=== PATIENT | female | born 1955 ===

== ENCOUNTER 2024-11-20 08:16 | Outpatient (CLI) | payer MEDICARE, OTHER, SELFPAY ==
--- OUTSIDE RECORDS SUMMARY | 2009-01-21 04:30 | XMS_ITS | Continuity of Care Document ---
Author Organization [facility] Address [address] [facility] [address] [place] [address] Phone Care Team Providers Care Shoeblack Name Role Phone Marquez OD, Wan Unavailable Unavailable Procedures Procedure Date Office/outpatient Visit, Est Office/outpatient Visit, Est Eye Exam, New Patient Advance Directives Directive Yes / No Effective Date File Name No Information Encounters Encounter Description Practice Location Reason(s) For Visit Diagnoses Date Provider Providers Copied on Encounter Office/outpat ient Visit, [facility], [address] [place] [address] [address], [place], [place], [id number], tel:[phone] [facility] No Information Nov-0 5-200 9 Marquez OD Wan. [address] , [address], [place], [place], [facility], . tel:[phone] Office/outpat ient Visit, [facility], [address] [place] [address] [address], [place], [place], [id number], [place] tel:[phone] [facility] No Information Oct-2 2-200 9 Marquez OD Wan. [address], [address], [place], [place], [facility], . tel:[phone] [facility], [address] [place] [address] [address], [place], [place], [id number], tel:[phone] [facility] No Information Oct-0 7-200 9 Marquez OD Wan. [address] , [address], [place], [address], [place]. tel:[phone] Family History Family Member Type Diagnosis Age At Onset No Information Payers Payer name Insurance type Covered democrat ID Authoriza tion(s) No Information Social History Type Description Quantity Date Captured Comments Sex Female Smoking Status No Information Chief Complaint And Reason For Visit No Information Reason For Referral Reason For Referral No Information History Of Present Illness Encounter Date Complaint History Of Prese nt Illness No Information Functional Status Date Functional Assessmen t No Information Instructions Date Instruction Additional Infor mation No Information Assessments Type Assessment Date No Information Patient Care Teams Name Effective Dates (start - stop) Status Members No Information
--- OUTSIDE RECORDS SUMMARY | 2018-04-02 06:30 | XMS_ITS | Continuity of Care Document ---
Author Organization [facility] Address [address] [place] [address] Phone Care Team Providers Care Aircraft Powerplant Repairer Name Role Phone Preston Solano MD Unavailable Unavailable Advance Directives Directive Yes / No Effective Date File Name No Information Encounters Encounter Description Practice Location Reason(s) For Visit Diagnoses Date Provider Providers Copied on Encounter [facility], [address], [place], [place], [address], [place] tel:[phone] [facility] No Information Xiomara Johnston. [address] [place], [place], [id number], [place]. tel:[phone] Referring Provider: Syed Edge, [address] [place], [address]. tel:[phone] Family History Family Member Type Diagnosis Age [...]
--- NOTE | ~2024-11-20 | DEXA_ITS ---
Bone Density Report Name: LU VILLEGAS Age: 69 Sex: Female Ethnicity: White Date of : 1955 Indication: postmenopausal; screening for osteoporosis; parental hip fracture; Referring Provider: COOPER, SCOTT Walton Study: Bone densitometry was performed. Exam Date: November 20, 2024 Accession number: [id number] Bone Density: Region BMD T-score Z-score Classification AP Spine(L1, L2, L3) 0.751 -2.4 -0.4 Osteopenia Femoral Neck (Left) 0.628 -2.0 -0.2 Osteopenia Total Hip (Left) 0.818 -1.0 0.4 Normal Femoral Neck (Right) 0.562 -2.6 -0.8 Osteoporosis Total Hip (Right) 0.697 -2.0 -0.5 Osteopenia Total Hip Mean 0.757 -1.5 -0.1 Osteopenia World Health Organization criteria for BMD impression classify patients as: Normal (T-score at or above -1.0), Osteopenia (T-score between -1.0 and -2.5), or Osteoporosis (T-score at or below -2.5). 10-year Fracture Risk: FRAX not reported because: Some T-score for Spine Total or Hip Total or Femoral Neck at or below -2.5 Clinical Information Provided by Patient: Parent has had a hip fracture Has used the following medications: Vitamin D, Calcium Patient maximum height was 66.5 Menopause Age: 58 Drinks caffeinated beverages Onset of menses at age 12 Number of children 2 Impression: The patient has osteoporosis, based on the Right Femoral Neck T-score. The patient has risk factors, including: parental hip fracture. Discussion: INCREASED RISK OF FRACTURE. BONE DENSITY IS UNDESIRABLY LOW AT ONE OR MORE SKELETAL SITES, CONSISTENT WITH POSTMENOPAUSAL OSTEOPOROSIS. This patient's lowest T-score meets the World Health Organization's (WHO) criteria for osteoporosis at one or more sites (T-score -2.5 or below). In untreated patients, the risk of osteoporotic fracture increases approximately two-fold for each 1.0 SD decrease in T-score. Low bone density is not the only risk factor for fracture; also consider factors such as patient's age, frailty or poor health, risk of falling, risk of injury, previous osteoporotic fracture, family history of osteoporosis, cigarette smoking, low body weight, etc. Not everyone with low bone mineral density has osteoporosis; osteomalacia and other metabolic bone disorders should also be considered. Patients who have osteoporosis should be evaluated for specific diseases and conditions (secondary causes) that may cause or contribute to bone loss. The [place] Association of Clinical Endocrinologists (AACE) and National Osteoporosis Foundation (NOF) recommend pharmacologic intervention for all postmenopausal women whose T-score is in this range. The patient should follow a healthful lifestyle (good nutrition with adequate calcium and vitamin D, and appropriate weight-bearing exercise). Follow-Up: Consider a repeat BMD and Vertebral Fracture Assessment (VFA) exam in 2 years or sooner if medically necessary, to reassess this patient's status. Reported by: ALEXANDER on 11/20/2024 8:54:00 AM. Reviewed, dictated and finalized at location A.
--- OUTSIDE RECORDS SUMMARY | 2024-11-20 08:25 | XMS_ITS | Clinical Summary ---
Author Organization [facility] Address [address] [place] [address] Care Team Providers Care Rag Shredder Name Role Phone Unavailable Primary Care Provider Unavailabl e Allergies Active Allergy Reactions Criticality Noted Date Comments Cephalexin Hives High 09/02/2013 Clindamycin Other (See Comments) 09/02/2013 Stomach pain. Sulfa (Sulfonamide Antibiotics) Hives High 09/02/2013 Unclassified Drug Hives High 10/22/2018 Medications estradioL 0.025 mg/24 hr patchIndications: Postmenopausal HRT (hormone replacement therapy) APPLY 1 PATCH TO SKIN TWICE WEEKLY DIRECTED 24 Patch 1 Active progesterone micronized (PROMETRIUM) 100 mg CapsuleIndication s:Postmenopausal HRT (hormone replacement therapy) TAKE 1 CAPSULE DAILY 90 Capsule 1 Active terbinafine HCL (LamISIL) 250 mg tablet Take 1 Tablet (250 mg) by mouth once daily for 1 week each month for 4 months. 28 Tablet 08/22/2021 5:18 PM CDT 2 Active ketorolac tromethamine (ACULAR) 0.5 % solution Instill 1 drop Right Eye twice a day 10 mL 6 12/02/2021 5:25 PM CDT 2 Active ketorolac tromethamine (ACULAR) 0.5 % solution Administer 1 Drop in right eye 2 times daily. 10 mL 2 Active mupirocin (BACTROBAN) 2 % Ointment APPLY TO THE AFFECTED AREA TWICE DAILY DIRECTED. 22 Gram 12 01/04/2022 5:23 PM CDT 2 Active triamcinolone acetonide (KENALOG) 0.1 % Cream Apply to the affected area twice daily for 2 weeks. 30 Gram 1 05/31/2022 5:54 PM CDT 3 Active amoxicillin (AMOXIL) 250 mg capsule Take 1 Capsule (250 mg) by mouth 3 times daily until gone 30 Capsule 12/27/2022 10:57 AM CDT 3 Active metroNIDAZOLE (FLAGYL) 500 mg tablet Take 0.5 Tablets (250 mg) by mouth 3 times daily until gone 15 Tablet 12/27/2022 10:57 AM CDT 3 Active HYDROcodone-aceta minophen (NORCO) 5-325 mg tablet Take 1-2 Tablets by mouth every 4-6 hours as needed for pain. 12 Tablet 12/27/2022 10:57 AM CDT 3 Active bromfenac (Prolensa) 0.07 % Drops solution Administer 1 drop to right eye once a day. 3 mL 4 02/22/2023 10:23 AM SEGMENTAL PAVER INSTALLER 3 Active terbinafine HCL (LamISIL) 250 mg tablet Take 1 tablet by mouth daily for 1 week, each month for 4 months 28 Tablet 08/23/2023 10:51 AM CDT 4 Active mupirocin (BACTROBAN) 2 % Ointment Apply to nose twice daily 22 Gram 12 01/23/2024 4:37 PM SEGMENTAL PAVER INSTALLER 4 Active triamcinolone acetonide (KENALOG) 0.1 % Cream Apply to back twice daily for 1-2 weeks 30 Gram 01/23/2024 4:37 PM SEGMENTAL PAVER INSTALLER 4 Active HYDROcodone-aceta minophen (NORCO) 5-325 mg tablet Take 1 Tablet by mouth every 4-6 hours as needed for pain. 6 Tablet 06/27/2024 3:06 PM CDT 5 Active ivermectin (STROMECTOL) 3 mg Tablet Take 1 Tablet (3 mg) by mouth daily for 4 weeks. 28 Tablet 08/29/2024 3:21 PM CDT 5 Active progesterone micronized (PROMETRIUM) 100 mg Capsule Take 1 Capsule (100 mg) by mouth daily. 90 Capsule 1 5 Active Active Problems Problem Noted Date Diagnosed Date Postmenopausal HRT (Vivelle 0.025 & Prometrium) 201809/02/2013 Encounters Date Type Department Care Team Description 10/21/2024 External Device Data ST[facility] ABSTRACTION Provider, Abstract 10/01/2024 External Device Data [facility] ABSTRACTION Provider, Abstract 10/01/2024 External Device Data [facility] ABSTRACTION Provider, Abstract 09/09/2024 External Device Data [facility] ABSTRACTION Provider, Abstract from Last 3 Months Family History Medical History Relation Name Comments Healthy Brother Heart Disease Father Bypass surgery Heart Disease Mother Bypass surgery Stroke Mother Relation Name Status Comments Brother Alive Father Mother Alive Social History Tobacco Use Types Packs/Day Years Used Date Smoking Tobacco: Former Smokeless Tobacco: Never Alcohol Use Standard Drinks/Week Comments Yes 10 (1 standard drink = 0.6 oz pu re alcohol) Comments No Sex and Gender Information Value Date Recorded Sex Assigned at Not on file Legal Sex Female 2:48 PM CDT Gender Identity Not on file Sexual Orientation Not on file Occupation Industry Job Start Date Job End Date Not on file Not on file Not on file Not on file Last Filed Vital Signs Vital Sign Reading Time Taken Comments Blood Pressure 120/80 11/10/2019 1:33 PM CDT Pulse 68 11/10/2019 1:33 PM CDT Temperature - - Respiratory Rate 16 09/25/2016 1:17 PM CDT Oxygen Saturation 96% 11/10/2019 1:33 PM CDT Inhaled Oxygen Concentration - - Weight 75.8 kg (167 lb) 11/10/2019 1:33 PM CDT Height 165.1 cm (5' 5) 11/10/2019 1:33 PM CDT Body Mass Index 27.79 11/10/2019 1:33 PM CDT Plan of Treatment Health Maintenance Due Date Last Done Comments DTAP/TDAP/TD VACCINES (1 - Tdap) 07/08/1974 BREAST CANCER SCREENING 1995 COLORECTAL SCREENING 07/08/2000 Colorectal Cancer Screening 07/08/2000 FIT-DNA Q 3 years 07/08/2000 FIT/FOBT Q 1 year 07/08/2000 Flex Sig/CT Colonography Q 5 years 07/08/2000 PNEUMOCOCCAL VACCINE 50+ YEARS (1 of 1 - PCV) 07/09/19 06 ZOSTER VACCINE (1 of 2) 07/08/2005 OSTEOPOROSIS SCREENING 07/08/2020 INFLUENZA VACCINE (#1) 2024 RSV VACCINE (60+ or ) (1 - 1-dose 75+ series) 07/08/2030 Insurance [facility] [employer] (INTERNAL) [facility]
--- OUTSIDE RECORDS SUMMARY | 2024-11-20 08:25 | XMS_ITS | Encounter Summary ---
Author Organization [facility] Address [address] [facility] [place] [address] Care Team Providers Care Coin Teller Name Role Phone Kurt Teran MD Primary Care Provider [phone] Encounter Details Date Type Department Care Team (Late st Contact Info) Description 01/06/2019 Lab Requisition [facility] DermPath Lab [address] [facility] [place] [id number] Ashely Hernadez MD [address] [facility] [address] [place] [address] Social History Tobacco Use Types Packs/Day Years Used Date Smoking Tobacco: Former Smokeless Tobacco: Never Alcohol Use Standard Drinks/Week Comments Yes 0 (1 standard drink = 0.6 oz pur e alcohol) Comments Unknown Sex and Gender Information Value Date Recorded Sex Assigned at Not on file Legal Sex Female 6:11 PM KILN SETTER Gender Identity Not on file Sexual Orientation Not on file documented as of this encounter Plan of Treatment Not on file documented as of this encounter Procedures Procedure Name Priority Date/Time Associated Diagnosis Comments DERMATOPATH TECHNICAL REPORT Routine 01/03/2019 12:00 AM CDT documented in this encounter Results * DERMATOPATH TECHNICAL REPORT (01/03/2019 12:00 AM CDT) Case Report Dermatopathology Report Case: [id number] Authorizing Provider: Ashely Hernadez MD Collected: 01/03/2019 12:00 AM Ordering Location: [facility] DermPath Lab Received: 01/06/2019 10:13 AM Pathologist: Angie Sofia MD Specimen: Skin, right inferior cheek 1:24 PM CDT DERMATOPATHOLOGY LABORATORY Clinical History Nevus vs SK, irritated. 1:24 PM CDT DERMATOPATHOLOGY LABORATORY Gross Description Specimen A: Received is one formalin filled container labeled with the patient's name and designated right inferior cheek. The specimen consists of a shave measuring [id number]. Jar 0. [facility] Dermatopathology Laboratory performed the technical component only. 1:24 PM CDT DERMATOPATHOLOGY LABORATORY Embedded Images 1:24 PM CDT DERMATOPATHOLOGY LABORATORY DISCLAIMER An external and internal positive and negative controls are appropriate for the histochemical, immunohistochemical and immunofluorescence stain(s) in this case (if any), except where stated explicitly. The performance characteristics of the stain(s) cited in this report were developed and its performance characteristic determined by the Dermatopathology Laboratory at [facility], directed by Dr. Loren Padilla. These tests need not be, and therefore are not, approved by the [place] Food and Drug Administration. The tests are used for clinical purposes. 1:24 PM CDT DERMATOPATHOLOGY LABORATORY at 1324 CDT Pathology/Cytolog y TISSUE SPECIMEN FROM SKIN / Unknown 01/03/2019 01/06/2019 10:13 AM CDT Ashely Hernadez MD LAB - PATHOLOGY/CYTOLOGY OR DERABLES Final Result DERMATOPATHOLOGY LABORATORY [facility] - Department of Dermatology [address] [place] [address], 5th [place] [address], [facility] [phone] documented in this encounter Visit Diagnoses Not on filedocumented in this encounter Care Teams Coin Teller Relationship Specialty Start Date End Date Kurt Teran MD [address] [place] [address] PCP - General 04/21/14 documented as of this encounter
--- OUTSIDE RECORDS SUMMARY | 2024-11-20 08:25 | XMS_ITS | Clinical Summary ---
Author Organization [facility] [employer] Address [address] [address] Care Team Providers Care Editorial Specialist Name Role Phone Kurt Teran MD Primary Care Provider [phone] Source Comments [facility] [employer],non-owned Affiliates and Associated Physician Practices is amultiple site organization consisting of ambulatory clinics and hospital sitesin [place], [place], [place] and [place]. This disclosure is being madepursuant to the Care Everywhere program and may not contain all information available regarding this patient. Last updated 17.[facility] [employer] Allergies Active Allergy Reactions Criticality Noted Date Comments Cephalexin Skin Reactions,Rash Medium 05/06/2014 Clindamycin Nausea Low 05/06/2014 Sulfa Drugs Skin Reactions,Rash Medium 05/06/2014 Active Problems Problem Noted Date Diagnosed Date Basal cell carcinoma of skin of right eyelid, including canthus 05/06/2014 Family History Medical History Relation Name Comments Cancer - Skin, Non Melanoma Father Cancer - Skin, Melanoma Neg Hx Eczema Neg Hx Psoriasis Neg Hx Relation Name Status Comments Father Social History Tobacco Use Types Packs/Day Years Used Date Smoking Tobacco: Former Smokeless Tobacco: Never Alcohol Use Standard Drinks/Week Comments Yes 0 (1 standard drink = 0.6 oz pur e alcohol) Comments Unknown Sex and Gender Information Value Date Recorded Sex Assigned at Not on file Legal Sex Female 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 Gender Identity Not on file Sexual Orientation Not on file Last Filed Vital Signs Vital Sign Reading Time Taken Comments Blood Pressure 127/82 06/17/2014 11:16 AM CDT Pulse 52 06/17/2014 11:16 AM CDT Temperature - - Respiratory Rate - - Oxygen Saturation 99% 06/17/2014 11:16 AM CDT Inhaled Oxygen Concentration - - Weight 70.3 kg (155 lb) 06/17/2014 9:24 AM CDT Height 167.6 cm (5' 6) 06/17/2014 9:24 AM CDT Body Mass Index 25.02 06/17/2014 9:24 AM CDT Plan of Treatment Health Maintenance Due Date Last Done Comments BONE DENSITY TESTING 1955 COLOGUARD (AGES 45-75) - COL ON CA SCREENING 1955 COLON MONITORING 1955 COLONOSCOPY - COLON CA SCREENING 1955 CT COLONOGRAPHY - COLON CA SCREENING 1955 Colorectal Cancer Screening 1955 FIT - COLON CA SCREENING 1955 FLEX SIG - COLON CA SCREENING 1955 LIPID TESTING 1955 MAMMOGRAM 1955 HEPATITIS C SCREENING 07/04/1973 DTAP/TDAP/TD VACCINES (1 - Tdap) 07/08/1974 PNEUMOCOCCAL VACCINE 50+ (1 of 1 - PCV) 07/08/2005 ZOSTER VACCINE (1 of 2) 07/08/2005 COVID-19 VACCINE (1 - 2023-2 5 season) 2023 DEPRESSION SCREENING 03/19/2024 INFLUENZA VACCINE (#1) 2024 Respiratory Syncytial Virus (RSV) Vaccine Pt: or over 60 yrs (1 - 1-dose 75+ series) 07/08/2030 HEPATITIS B VACCINE Aged Out No longe r eligible based on patient's age to complete this topic HIB VACCINE Aged Out No longer eligi ble based on patient's age to complete this topic HPV VACCINE Aged Out No longer eligi ble based on patient's age to complete this topic MENINGOCOCCAL (Group B) VACC INE SHARED DECISION-MAKING Aged Out No longer eligibl e based on patient's age to complete this topic MENINGOCOCCAL GROUPS A/C/Y/W VACCINE Aged Out No longer eligible b ased on patient's age to complete this [place] [address] [facility] Care Teams Editorial Specialist Relationship Specialty Start Date End Date Kurt Teran MD [address] [place] [address] PCP - General 04/21/14
--- OUTSIDE RECORDS SUMMARY | 2024-11-20 08:25 | XMS_ITS | Encounter Summary ---
Author Organization [facility] Address [address] [facility] [place] [address] Care Team Providers Care Correctional Program Officer Name Role Phone Kurt Teran MD Primary Care Provider [phone] Encounter Details Date Type Department Care Team (Late st Contact Info) Description 01/06/2019 Lab Requisition [facility] Care DermPath Lab [address] [facility] [place] [address] Ashely Hernadez MD [address] [facility] [address] [place] [address] Social History Tobacco Use Types Packs/Day Years Used Date Smoking Tobacco: Former Smokeless Tobacco: Never Alcohol Use Standard Drinks/Week Comments Yes 0 (1 standard drink = 0.6 oz pur e alcohol) Comments Unknown Sex and Gender Information Value Date Recorded Sex Assigned at Not on file Legal Sex Female 6:11 PM SERVICE ADVOCATE CONTACT Gender Identity Not on file Sexual Orientation Not on file documented as of this encounter Plan of Treatment Not on file documented as of this encounter Visit Diagnoses Not on filedocumented in this encounter Care Teams Correctional Program Officer Relationship Specialty Start Date End Date Kurt Teran MD [address] [place] [address] PCP - General 04/21/14 documented as of this encounter
--- OUTSIDE RECORDS SUMMARY | 2024-11-20 08:25 | XMS_ITS | Encounter Summary ---
Author Organization [facility] Address [address] [facility] [place] [address] Care Team Providers Care Electric Brain Wave Equipment Mechanic Name Role Phone Kurt Teran MD Primary Care Provider [phone] Encounter Details Date Type Department Care Team (Late st Contact Info) Description 01/02/2018 Lab Requisition [facility] Care DermPath Lab [address] [facility] [place] [address] Ashely Hernadez MD [address] [facility] [address] [place] [address] Social History Tobacco Use Types Packs/Day Years Used Date Smoking Tobacco: Former Smokeless Tobacco: Never Alcohol Use Standard Drinks/Week Comments Yes 0 (1 standard drink = 0.6 oz pur e alcohol) Comments Unknown Sex and Gender Information Value Date Recorded Sex Assigned at Not on file Legal Sex Female 6:11 PM FURNACE MASON Gender Identity Not on file Sexual Orientation Not on file documented as of this encounter Plan of Treatment Not on file documented as of this encounter Procedures Procedure Name Priority Date/Time Associated Diagnosis Comments DERMATOPATH TECHNICAL REPORT Routine 01/01/2018 12:00 AM CDT documented in this encounter Results * DERMATOPATH TECHNICAL REPORT (01/01/2018 12:00 AM CDT) Case Report Dermatopathology Report Case: [id number] Authorizing Provider: Ashely Hernadez MD Collected: 01/01/2018 12:00 AM Pathologist: Angie Sofia MD Received: 01/02/2018 06:41 AM Specimen: Skin, central mid back 9:32 AM CDT DERMATOPATHOLOGY LABORATORY Clinical History R/O BCC, SK, irritated, non-healing. Check margins. 9:32 AM CDT DERMATOPATHOLOGY LABORATORY Gross Description Specimen A: Received is one formalin filled container labeled with the patient's name and designated central mid back. The specimen consists of a shave measuring [id number]. The margin is inked green. Jar 0. [facility] Dermatopathology Laboratory performed the technical component only. 9:32 AM CDT DERMATOPATHOLOGY LABORATORY Embedded Images 9:32 AM CDT DERMATOPATHOLOGY LABORATORY DISCLAIMER An external and internal positive and negative controls are appropriate for the histochemical, immunohistochemical and immunofluorescence stain(s) in this case (if any), except where stated explicitly. The performance characteristics of the stain(s) cited in this report were developed and its performance characteristic determined by the Dermatopathology Laboratory at [facility]. These tests need not be, and therefore are not, approved by the [place] Food and Drug Administration. The tests are used for clinical purposes. 9:32 AM T DERMATOPATHOLOGY LABORATORY at 0932 CDT Pathology/Cytolog y TISSUE SPECIMEN FROM SKIN / Unknown 01/01/2018 01/02/2018 6:41 AM CDT Ashely Hernadez MD LAB - PATHOLOGY/CYTOLOGY OR DERABLES Final Result DERMATOPATHOLOGY LABORATORY [facility] - Department of Dermatology [address] [place] [address], 5th Floor Lab [address] [phone] documented in this encounter Visit Diagnoses Not on filedocumented in this encounter Care Teams Electric Brain Wave Equipment Mechanic Relationship Specialty Start Date End Date Kurt Teran MD [address] [place] [address] PCP - General 04/21/14 documented as of this encounter
== END 2024-11-20 08:17 | disposition home or self-care (01) ==
LOC: ANHFOHIMG 08:19
PROVIDERS: PCP Family Medicine; Visit Provider Family Medicine
DX: Z13.820 Encounter for screening for osteoporosis (principal); M85.88 Other specified disorders of bone density and structure, other site; M85.852 Other specified disorders of bone density and structure, left thigh; M85.851 Other specified disorders of bone density and structure, right thigh; M81.0 Age-related osteoporosis without current pathological fracture
CPT/HCPCS: 77080